=== PATIENT | male | born 1965 | race African-American/Black ===

== ENCOUNTER 2024-07-13 01:11 | Emergency (ER) | payer OTHER ==
[2024-07-13] MEDS ORDERED: Lidocaine 4% 1 each Patch TOP PRN (02:13)
[2024-07-13] MEDS: Ibuprofen 800 MG Tab PO ONE (02:57)
== END 2024-07-13 03:08 | disposition home or self-care (01) ==
LOC: MW.ED 01:11
DX: M25.561 Pain in right knee (principal); Z79.51 Long term (current) use of inhaled steroids; Z79.899 Other long term (current) drug therapy; Z75.8 Other problems related to medical facilities and other health care
CPT/HCPCS: 73562; 99283; A9270